=== PATIENT | female | born 1990 | race Caucasian/White ===

== ENCOUNTER 2025-02-05 15:32 | Emergency (ER) | payer OTHER ==
[2025-02-05] MEDS ORDERED: Ketorolac Tromethamine 30 MG (1 mL) VIAL ONE (16:57)
[2025-02-05] MEDS ORDERED: HYDROcodone/Acetaminophen 10/325 mg Tablet ONE (16:57)
== END 2025-02-05 16:45 | disposition home or self-care (01) ==
LOC: ERS 15:32
DX: S56.911A Strain of unspecified muscles, fascia and tendons at forearm level, right arm, initial encounter (principal); E03.9 Hypothyroidism, unspecified; Z79.890 Hormone replacement therapy; X58.XXXA Exposure to other specified factors, initial encounter; Y99.0 Civilian activity done for income or pay
CPT/HCPCS: 96372; 99283; J1885